=== PATIENT | female | born 1945 | race Two or more races ===

== ENCOUNTER 2021-11-24 07:38 | Outpatient (CLI) | payer OTHER | END 2021-11-24 09:46 | disposition home or self-care (01) | LOC: LAB 07:38 | PROVIDERS: ATTEND Orthopaedic Surgery | DX: D64.9 Anemia, unspecified (principal); E88.9 Metabolic disorder, unspecified; D68.8 Other specified coagulation defects; N39.0 Urinary tract infection, site not specified; A49.02 Methicillin resistant Staphylococcus aureus infection, unspecified site; E11.9 Type 2 diabetes mellitus without complications; Z76.89 Persons encountering health services in other specified circumstances; I49.9 Cardiac arrhythmia, unspecified; I10 Essential (primary) hypertension ==

== ENCOUNTER → 2021-12-07 08:03 | Outpatient (CLI) | payer OTHER | END | disposition home or self-care (01) | LOC: LAB 08:03 | PROVIDERS: ATTEND Orthopaedic Surgery | DX: E55.9 Vitamin D deficiency, unspecified (principal); M85.9 Disorder of bone density and structure, unspecified; E56.1 Deficiency of vitamin K; E21.3 Hyperparathyroidism, unspecified; E88.9 Metabolic disorder, unspecified; M81.8 Other osteoporosis without current pathological fracture ==

== ENCOUNTER → 2021-12-08 | Outpatient (CLI) | payer OTHER | END | disposition home or self-care (01) | LOC: NUCLEAR 10:57 | PROVIDERS: ATTEND Orthopaedic Surgery | DX: M81.0 Age-related osteoporosis without current pathological fracture (principal) ==

== ENCOUNTER 2021-12-27 09:11 | Outpatient (CLI) | payer OTHER | END 2021-12-27 09:13 | disposition home or self-care (01) | LOC: RAD 09:11 | PROVIDERS: ATTEND Orthopaedic Surgery | DX: M25.532 Pain in left wrist (principal); M79.641 Pain in right hand; S42.34 Spiral fracture of shaft of humerus ==